=== PATIENT | female | born 1940 | race Caucasian/White ===

== ENCOUNTER → 2016-08-11 | Outpatient (CLI) | payer OTHER ==
--- NOTE | 2016-08-11 08:59 | US ---
Bilateral Duplex/Doppler Carotid Sonography Clinical Indications: 76-year-old female with known CAD and hyperlipidemia; evaluate for arterial occ lusive disease. Technique: The cervical portions of the carotid and vertebral arteries were imaged and interrogated b y color and pulsed Doppler. Spectral analysis was performed. Findings: Right Carotid: The common carotid artery, bifurcation, and origins of the internal and external carot id arteries are well imaged. Mild plaque formation is seen at the level of the carotid bifurcation. Peak ICA systolic velocity; 62 cm/sec. The internal to common carotid artery ratio is calculated at 1.0. Peak ICA diastolic velocity; 11 cm/sec. There is no evidence of flow-limiting stenosis. Left Carotid: The common carotid artery, bifurcation, and origins of the internal and external carot id arteries are well imaged. Mild-moderate plaque formation is seen at the level of the carotid bifurcation. Peak ICA systolic velocity; 71 cm/sec. The internal to common carotid artery ratio is calculated at 1.1. Peak ICA diastolic velocity; 16 cm/sec. There is no evidence of flow-limiting stenosis. Vertebral Arteries: Antegrade flow is shown by pulsed Duplex/Doppler of each vertebral artery. Impression: Plaque formation is seen involving the carotid bifurcations bilaterally with no evidence of flow-limiting carotid stenosis. Measurement of carotid stenosis is based on velocity parameters that correlate the residual internal carotid diameter with [place] Symptomatic Carotid Endarterectomy Trial (NASCET) based stenosis levels.
== END ==
LOC: FIMAGING 07:24
PROVIDERS: ATTEND Internal Medicine Interventional Cardiology
DX: I70.8 Atherosclerosis of other arteries (principal); I25.10 Atherosclerotic heart disease of native coronary artery without angina pectoris; E78.5 Hyperlipidemia, unspecified; E11.9 Type 2 diabetes mellitus without complications

== ENCOUNTER → 2016-08-24 | Outpatient (CLI) | payer OTHER | LOC: SBRMNEURO 20:00 | PROVIDERS: ATTEND Psychiatry & Neurology Sleep Medicine | DX: G47.33 Obstructive sleep apnea (adult) (pediatric) (principal) ==

== ENCOUNTER 2016-09-12 12:00 | Observation (INO) | payer OTHER ==
[2016-09-12] MEDS ORDERED: FAMOTIDINE 20 MG TAB PO ONE (12:06)
[2016-09-12] MEDS ORDERED: ceFAZolin 2 GM/DEXTROSE 100 ML IV ONE (12:06)
[2016-09-12] MEDS ORDERED: NS 1,000 ML IV ONE (12:06)
[2016-09-12] MEDS ORDERED: diphenhydrAMINE 25 MG CAP PO ONE (12:06)
[2016-09-12] MEDS ORDERED: DIAZEPAM 5 MG TAB PO ONE (12:06)
[2016-09-12] MEDS ORDERED: ASPIRIN EC 325 MG TAB PO ONE (12:06)
[2016-09-12] MEDS ORDERED: BACITRACIN IRRIGATION/NS 50,000 UNITS/1,000 ML BTL IRR ONE (12:06)
[2016-09-12] MEDS ORDERED: ceFAZolin 2 GM in D5W 100 ML IV ONE (12:30)
[2016-09-12 12:46] LABS: % IMMATURE GRANULYOCYTES 0.3 % (0.0-1.1); ABSOLUTE IMMATURE GRANULOCYTES 0.02 10^3/uL (0.00-0.10); ADD DIFF? NO; ADD MORPH? NO; ADD SCAN? NO; ATYPICAL LYMPHOCYTE FLAG 0 (0-99); FRAGMENT RBC FLAG 20 (0-99); HEMATOCRIT 37.3 % (38.0-47.0); HEMOGLOBIN 11.8 g/dL (12.6-16.3); LEFT SHIFT FLG 0 (0-99); LIPEMIA HEMOLYSIS FLAG 80 (0-99); MEAN CELL HEMOGLOBIN 26.8 pg (27.9-34.1); MEAN CELL HEMOGLOBIN CONCENTR. 31.6 g/dL (32.4-36.7); MEAN CELL VOLUME 84.6 fL (81.5-99.8); MEAN PLATELET VOLUME 10.6 fL (8.7-11.7); PLATELET CLUMPS FLAG 0 (0-99); PLATELET COUNT 240 10^3/uL (150-400); RED BLOOD CELL COUNT 4.41 10^6/uL (4.18-5.33); RED CELL DISTRIBUTION WIDTH 16.8 % (11.5-15.2)
--- NOTE | 2016-09-12 12:52 | CPEKG ---
Heart Rate: 60 RR Interval: 1000 P-R Interval: 180 QRSD Interval: 144 QT Interval: 452 QTC Interval: 452 P [place]: 60 QRS [place]: -50 T Wave [place]: -16 EKG Severity - ABNORMAL ECG - EKG Impression: SINUS RHYTHM EKG Impression: RBBB AND LAFB EKG Impression: PROBABLE LEFT VENTRICULAR HYPERTROPHY Electronically Signed By: Reilly Mascorro 14-Sep-2016 08:41:11
[2016-09-12 12:59] LABS: INR 1.35 (0.83-1.16); PROTIME(PATIENT) 16.7 SEC (12.0-15.0)
[2016-09-12] MEDS ORDERED: LIDOCAINE 1% 30 ML SDV ONE ×3 (12:59→15:10)
[2016-09-12] MEDS ORDERED: VERAPAMIL 5 MG/2 ML VIAL ONE (13:00)
[2016-09-12] MEDS ORDERED: HEPARIN 10,000 UNIT/10 ML MDV ONE (13:00)
[2016-09-12] MEDS ORDERED: IOPAMIDOL (ISOVUE-370) 150 ML BTL IV ONE (13:00)
[2016-09-12] MEDS ORDERED: fentaNYL 100 MCG/2 ML INJ ONE ×2 (13:00→14:56)
[2016-09-12] MEDS ORDERED: MIDAZOLAM 2 MG/2 ML VIAL ONE ×2 (13:00→14:56)
[2016-09-12] MEDS ORDERED: LIDO/EPI 1% **for epidural** 30 ML SDV ONE (13:20)
[2016-09-12] MEDS ORDERED: BUPIVACAINE 0.5% 30 ML SDV ONE (13:20)
[2016-09-12] MEDS ORDERED: IOPAMIDOL (ISOVUE-300) 100 ML BTL IV ONE (14:26)
--- NOTE | 2016-09-12 14:40 | SUROPNOTE ---
[facility] Operative Report - Surgery Date of Procedure: 09/12/16 Indication: This patient is a 76 year old woman, with a history of atrial fibrillation anticoagulated on Coumadin, type II DM, hyperlipidemia, hypertension, CVA in 2013, CAD s/p DC 11/2014 (no PCI), and vascular dementia, presenting with [id number] dyspnea on exertion and fatigue. [place] cardiovascular class III anginal equivalent. Nuclear stress test was performed and myocardial perfusion imaging demonstrated a small, mild intensity reversible defect involving the mid and basal inferior wall consistent with ischemia. Treadmill stress test with CAEP protocol was also performed, demonstrating that a maximum heart rate of 94 bpm was achieved, which represents 65% of the predicted max HR. Decision was made to perform left heart catheterization to rule out ischemia on the basis of class III anginal equivalent and intermediate risk non-invasive testing. If left heart catheterization does not demonstrate critical lesion, then will proceed with pacemaker placement for sick sinus syndrome and chronotropic incompetence, and right heart catheterization for class III dyspnea. Procedures performed: 1. Left heart catheterization with left ventricular and selective coronary angiography. Description of procedure: Description, risks, benefits and alternatives were discussed in detail. Informed consent was obtained. The patient was brought to the catheterization laboratory where a timeout was performed. In order to minimize anticoagulant usage, in the setting of possible pacemaker placement, the decision was made to use femoral access. The right groin was sterilely prepped and draped. 2% lidocaine utilized for local anesthetic. A 4-Rwandan hemostatic sheath placed right femoral artery utilizing modified Seldinger technique. Diagnostic coronary angiography performed with 6-Rwandan, Ki left-4 and Ki right- 4 catheter. All catheters were passed over a 0.035 guidewire. Pigtail catheter was then utilized for left heart catheterization and left ventricular angiography. Arterial sheath was removed under manual hold. Findings: 1. Hemodynamics: Aortic pressure 109/79, mean of 123, left ventricular pressure 184/12/29 end-diastolic. There was no significant pull back gradient across the aortic valve. 2. Left ventricle: The left ventricle appears mildly dilated. Left ventricle is normal shape. Segmental wall motion is normal with an ejection fraction of 50 %. There are no filling defects or significant mitral regurgitation. The aortic root and ascending aorta appears normal, there is no dissection or aneurysm formation. 3. Coronary angiography: Left main: The left main is a long large bifurcating vessel with mild calcified irregularities. 4. Left anterior descending: This is a moderately large vessel continuing around the apex. There are three small diagonal branches. There is moderate proximal and mid LAD calcification with eccentric 60% calcified mid LAD disease and a long area of mid LAD 70-80% disease. 5. Circumflex: The circumflex is nondominant with a large multibranching obtuse marginal and two small posterolaterals. The proximal circumflex has an eccentric 50% stenosis. The first obtuse marginal contains diffuse 60% or slightly greater proximal disease, otherwise there are mild luminal irregularities. 6. Right coronary: Large dominant vessel. Moderately large PDA, moderately large posterolateral. The right coronary contains calcified 50% disease, proximal eccentric 50% disease, and mid eccentric 60% disease; otherwise diffuse luminal irregularities. Overall Impression: 1. Moderate three vessel coronary artery disease, with the most severe being 70- 80% mid LAD disease (which does not correlate with nuclear stress testing reversible defect). 2. Mild dilation of the left ventricle with mildly reduced left ventricular systolic function, ejection fraction of 50%. 3. Chronotropic incompetence and sick sinus syndrome Plan: 1. Proceed with permanent pacemaker placement and right heart catheterization through the pacer pocket 2. Aggressive risk modification and high dose statin therapy. 3. Depending on clinical recovery, would consider bringing the patient back for multivessel FFR and directed intervention. Portions of this report were documented by a medical receptionist. I have reviewed this report and agree with the documentation. Report scribed for Dr. Aiden Malik. Report scribed by Cassy Alvarenga.
--- NOTE | 2016-09-12 14:49 | SUROPNOTE ---
[facility] Operative Report - Surgery Date of Procedure: 09/12/16 Indication: This patient is a 76 year old woman, with a history of atrial fibrillation anticoagulated on Coumadin, type II DM, hyperlipidemia, hypertension, CVA in 2013, CAD s/p [place] 11/2014 (no PCI), and vascular dementia, presenting with [id number] dyspnea on exertion and fatigue. Treadmill stress test with CAEP protocol was also performed, demonstrating that a maximum heart rate of 94 bpm was achieved, which represents 65% of the predicted max HR. Plan for permanent pacemaker placement in the setting of sick sinus syndrome and chronotropic incompetence, and right heart catheterization for class III dyspnea. Procedure Performed: 1. Placement of a dual chamber permanent pacemaker 2. Right heart catheterization Description of procedure: Risks, benefits, and alternatives were discussed in detail. Informed consent was obtained. We discussed various options for devices. Patient was brought to the catheterization laboratory, where a time out was performed. Left subclavian venography was performed via left arm IV, showing anatomically normal and widely patent left subclavian vein. Left anterior chest was sterilely prepped and draped. Patient received Ancef 2g intravenously. 2% lidocaine and 0.5% Marcaine were utilized for local anesthetic. A skin incision was made with a # 10 blade and carried down to pectoralis fascia using Bovie, and bleeders were cauterized. Site for the pocket was anesthetized with lidocaine with epinephrine. The pocket was created by blunt dissection and packed with single Ray-Bharat antibiotic-soaked gauze. The patient was placed in Trendelenburg position. Then, under fluoroscopic guidance, the subclavian vein was punctured with an 18-gauge thin wall needle (with quite difficulty establishing access due to vessel tortuosity and body habitus) and cannulated with 0.035 J-tip guidewire. A 7-Saudi Arabian peel-away introducing sheath was placed through which a 7- [place] PWP catheter was utilized for right heart catheterization. PWP catheter was removed and a second 0.035 J-tip guidewire was placed through the sheath. Sheath was removed and flushed, placed back over the original guidewire, establishing dual guidewire access. Then, through the sheath, a single coil active fixation right ventricular pacing lead was placed. This was positioned in the right ventricular apex and secured in place with the active fixation helix. There was adequate pacing and sensing, and the lead was sutured in place with a suture sleeve and two separate 0 Ethibond sutures. Then, over the second guidewire, a 6-S[place] peel-away introducing sheath was placed through which the active fixation right atrial lead was passed. Using a J curved stylette, this was placed in the area of the right atrial appendage and secured in place with the active fixation helix. There was adequate pacing and sensing, and the lead was suture in place with a suture sleeve and two separate 0 Ethibond sutures. Ray-Bharat gauze was moved from the pocket. The pocket was copiously irrigated with antibiotic solution and coated with D-Stat liquid hemostat. Any sites of oozing were cauterized. Pacemaker generator was brought to the field, leads were connected to proper head ports, and all set screws were tightened. Generator was placed in the pocket with the leads posterior, and secured in place with a single 0 Ethibond suture. The pocket was then closed with interrupted layers of 2-0 and 3-0 Vicryl suture and running 4-0 subcuticular Stratafix suture. Benzoin, Steri-Strips, and Opsite were placed. Hardware Implanted: Pacemaker is a Biotronik Eluna 8 DR-T ProMRI, model 417701, serial [id number]. Right ventricular lead is a Biotronik Solia S 53, model 342793, serial [id number] , threshold 0.60V @ 0.40ms, R wave sensing 5.50mV, impedance 741 Ohms. Right atrial lead is a Biotronik Solia S 45, model 083079, serial [id number], threshold 1.00V @ 1.00ms, P wave sensing 1.80mV, impedance 390 Ohms. Findings: 1. Hemodynamics: Right atrial pressure mean of 21. Right ventricular pressure 47/7/16 end-diastolic. Pulmonary artery pressure 47/16, mean of 29. Pulmonary capillary wedge pressure mean of 26 with V wave of 35. 2. Saturations: Superior vena cava 62.8%, main pulmonary artery 59.0%, Ao 94% . Assumed Hannah cardiac output 5.2L/min with a cardiac index of 2.4 L/min/m2. Impression: 1. Successful placement of dual chamber permanent pacemaker 2. Elevated filling pressures 3. Moderate pulmonary hypertension Plan: 1. Diuretic medical therapy Portions of this report were documented by a medical affairs manager. I have reviewed this report and agree with the documentation. Report scribed for Dr. Aiden Malik. Report scribed by Cassy Alvarenga.
[2016-09-12 14:50] LABS: ANION GAP 12 mEq/L (8-16); CALCIUM 10.4 mg/dL (8.5-10.4); CARBON DIOXIDE 20 mEq/l (22-31); CHLORIDE 109 mEq/L (97-110); CHOLESTEROL 133 mg/dL (140-220); CREATININE 0.9 mg/dL (0.6-1.0); GLOMERULAR FILTRATION RATE > 60; GLUCOSE 142 mg/dL (70-100); HIGH DENSITY LIPOPROTEIN 35 mg/dL (40-85); LDL/HDL RATIO 1.91 RATIO (1.00-3.22); LOW DENSITY LIPOPROTEIN 67 mg/dL (80-100); MAGNESIUM 1.3 mg/dL (1.6-2.3); NON-HIGH DENSITY LIPOPROTEIN 98 mg/dL (90-129); POTASSIUM 3.8 mEq/L (3.5-5.2); SODIUM 141 mEq/L (134-144); TRIGLYCERIDE 156 mg/dL (35-135); VERY LOW DENSITY LIPOPROTEINS 31 mg/dL (8-25)
[2016-09-12] MEDS ORDERED: ONDANSETRON 4 MG/2 ML VIAL IVP PRN (15:46)
[2016-09-12] MEDS ORDERED: OXYCODONE/APAP 5/325 TAB PO PRN (15:46)
[2016-09-12] MEDS ORDERED: ATROPINE SULFATE 1 MG/10 ML SYR IVP PRN (15:46)
[2016-09-12] MEDS ORDERED: HYDROCODONE/APAP 5/325 TAB PO PRN (15:46)
--- NOTE | 2016-09-12 16:46 | CPEKG ---
Heart Rate: 87 RR Interval: 690 P-R Interval: 156 QRSD Interval: 174 QT Interval: 456 QTC Interval: 549 P [place]: 0 QRS [place]: -72 T Wave [place]: 109 EKG Severity - ABNORMAL ECG - EKG Impression: VENTRICULAR-PACED RHYTHM Electronically Signed By: Reilly Mascorro 14-Sep-2016 08:41:17
[2016-09-12] MEDS ORDERED: MAGNESIUM SULF 2 GM/WATER 50 ML IV ONE (18:00)
[2016-09-12] MEDS ORDERED: MEMANTINE HCL PO SCH (21:00)
[2016-09-12] MEDS: amLODIPine BESYLATE 5 MG TAB PO SCH (21:09)
[2016-09-13 05:26] LABS: % IMMATURE GRANULYOCYTES 0.3 % (0.0-1.1); ABSOLUTE IMMATURE GRANULOCYTES 0.02 10^3/uL (0.00-0.10); ADD DIFF? NO; ADD MORPH? NO; ADD SCAN? NO; ATYPICAL LYMPHOCYTE FLAG 0 (0-99); FRAGMENT RBC FLAG 0 (0-99); HEMATOCRIT 32.3 % (38.0-47.0); HEMOGLOBIN 9.9 g/dL (12.6-16.3); LEFT SHIFT FLG 0 (0-99); LIPEMIA HEMOLYSIS FLAG 80 (0-99); MEAN CELL HEMOGLOBIN 26.5 pg (27.9-34.1); MEAN CELL HEMOGLOBIN CONCENTR. 30.7 g/dL (32.4-36.7); MEAN CELL VOLUME 86.6 fL (81.5-99.8); MEAN PLATELET VOLUME 10.9 fL (8.7-11.7); PLATELET CLUMPS FLAG 0 (0-99); PLATELET COUNT 218 10^3/uL (150-400); RED BLOOD CELL COUNT 3.73 10^6/uL (4.18-5.33); RED CELL DISTRIBUTION WIDTH 16.9 % (11.5-15.2)
[2016-09-13 05:54] LABS: ANION GAP 9 mEq/L (8-16); CALCIUM 9.5 mg/dL (8.5-10.4); CARBON DIOXIDE 23 mEq/l (22-31); CHLORIDE 109 mEq/L (97-110); CREATININE 0.9 mg/dL (0.6-1.0); GLOMERULAR FILTRATION RATE > 60; GLUCOSE 127 mg/dL (70-100); POTASSIUM 4.1 mEq/L (3.5-5.2); SODIUM 141 mEq/L (134-144)
[2016-09-13] MEDS ORDERED: LEVOTHYROXINE 75 MCG TAB PO SCH (06:00)
[2016-09-13 07:51] VITALS: BP 125/57; PULSE 74; RESP 17; TEMP 97.8; O2SAT 97
[2016-09-13] MEDS: amLODIPine BESYLATE 5 MG TAB PO SCH (08:42)
--- NOTE | 2016-09-13 08:48 | SOAPPROG ---
SOAP Progress Note Assessment/Plan: Assessment: [place] [place] 1. Status post dual chamber pacemaker implantation. 2. Status post C showing diffuse moderate-severe CAD with borderline LAD lesion. No PCI performed. 3. Dilated cardiomyopathy / mild systolic CHF w/ LVEF 50%, elevated filling pressures. 4. History of PAF, high CHADS-VASc, anticoagulated w/ coumadin. 5. T2DM treated w/ oral medications. 6. HTN, controlled. 7. Hyperlipidemia. 8. RBBB/LAFB. 9. History of CVA in 2013. 10. Hypothyroidism. 11. BOAZ treated w/ CPAP. Plan: 1. Standard post-pacemaker precautions. 2. Diuretic therapy. 3. Post-cath precautions. 4. Resume warfarin. Continue all other home medications. 5. Discharge to home today. 09/13/16 08:40 09/13/16 09:12 Objective: Vital Signs Temp Pulse Resp BP Pulse Ox 36.6 C 74 17 125/57 H 97 09/13/16 07:50 09/13/16 07:50 09/13/16 07:50 09/13/16 07:50 09/13/16 07:50 Laboratory Results 09/13/16 04:30 09/13/16 04:30 09/12/16 09/13/16 09/14/16 05:59 05:59 05:59 Intake Total 440 Balance 440 PT 16.7 SEC (12.0-15.0) H 09/12/16 12:40 INR 1.35 (0.83-1.16) H 09/12/16 12:40
--- NOTE | 2016-09-13 08:54 | CPEKG ---
Heart Rate: 67 RR Interval: 896 P-R Interval: 156 QRSD Interval: 146 QT Interval: 452 QTC Interval: 478 P [place]: 62 QRS [place]: -53 T Wave [place]: -12 EKG Severity - ABNORMAL ECG - EKG Impression: SINUS RHYTHM EKG Impression: RBBB AND LAFB EKG Impression: PROBABLE LEFT VENTRICULAR HYPERTROPHY EKG Impression: SINUS RHYTHM HAS REPLACED VENTRICULAR PACED RHYTHM ON PRIOR ECG Electronically Signed By: Reilly Mascorro 14-Sep-2016 08:51:21
[2016-09-13] MEDS ORDERED: FUROSEMIDE 20 MG TAB PO SCH (09:00)
[2016-09-13] MEDS ORDERED: METOPROLOL SUCCINATE XR 50 MG TAB PO SCH (09:00)
[2016-09-13] MEDS ORDERED: GLIMEPIRIDE 1 MG TAB PO SCH (09:00)
[2016-09-13] MEDS ORDERED: LOSARTAN POTASSIUM 50 MG TAB PO SCH (09:00)
[2016-09-13] MEDS ORDERED: ATORVASTATIN CALCIUM 40 MG TAB PO SCH (09:00)
[2016-09-13] MEDS ORDERED: CITALOPRAM 20 MG TAB PO SCH (09:00)
[2016-09-13] MEDS ORDERED: MEMANTINE HCL 5 MG TAB PO SCH (09:00)
== END 2016-09-13 12:38 | disposition home or self-care (01) ==
LOC: FCATH 12:00 → F2W 15:46
PROVIDERS: ADMIT Internal Medicine Interventional Cardiology; ATTEND Internal Medicine Interventional Cardiology
DX: I49.5 Sick sinus syndrome (principal); I25.10 Atherosclerotic heart disease of native coronary artery without angina pectoris; I42.0 Dilated cardiomyopathy; I48.0 Paroxysmal atrial fibrillation; E11.9 Type 2 diabetes mellitus without complications; I10 Essential (primary) hypertension; E78.5 Hyperlipidemia, unspecified; I45.10 Unspecified right bundle-branch block; I44.4 Left anterior fascicular block; E03.9 Hypothyroidism, unspecified; G47.33 Obstructive sleep apnea (adult) (pediatric); Z86.73 Personal history of transient ischemic attack (TIA), and cerebral infarction without residual deficits; Z95.0 Presence of cardiac pacemaker
CPT/HCPCS: 33208; 71010; 71020; 93005; 93460; A4649; C1785; C1898; J0690; J1644; J2250; J3010; Q9967

== ENCOUNTER 2016-09-16 08:56 | Inpatient (IN) | payer OTHER ==
[2016-09-16] MEDS ORDERED: NS 500 ML IV ONE (09:00)
--- NOTE | 2016-09-16 09:08 | CPEKG ---
Heart Rate: 121 RR Interval: 496 QRSD Interval: 144 QT Interval: 388 QTC Interval: 551 QRS [place]: -58 T Wave [place]: 12 EKG Severity - ABNORMAL ECG - EKG Impression: AFIB/FLUT AND V-PACED COMPLEXES EKG Impression: RBBB AND LAFB EKG Impression: PROBABLE LEFT VENTRICULAR HYPERTROPHY Electronically Signed By: Suleman Goss 16-Sep-2016 11:13:51
[2016-09-16] MEDS ORDERED: MAGNESIUM SULF 2 GM/WATER 50 ML IV ONE ×3 (09:12→12:51)
--- NOTE | 2016-09-16 09:20 | EDPHY ---
H & P Time Seen by Provider: 09/16/16 08:59 HPI/ROS: HPI Lightheaded, near fainting. 68-year-old female by ambulance from home. This patient had a pacemaker placed by Dr. Malik of the Cardiology Service on September 13. She has a history of atrial fibrillation. She is on Coumadin currently. She reports that she has had several episodes of lightheadedness when standing. She reports that she was in her kitchen this morning. She was making coffee when she had sudden onset lightheadedness. She was able to slowly lower herself to the ground but was not able to get up off the floor. She reports that she slid down while holding onto the sink. She denies hitting her head. She did not twist her neck. EMS was called. They noted atrial fibrillation with a rapid ventricular response on the rhythm strip. The patient denies chest pain or shortness of breath. She had some right shoulder pain initially reported to EMS this was from laying on her right shoulder. Once I got her up this pain resolved and she denies any musculoskeletal pain at this time. ROS: Constitutional: No fever, no chills. As above. Eyes: No discharge. No changes in vision. ENT: No sore throat. No nasal congestion or rhinorrhea. Respiratory: No cough. No shortness of breath. Cardiac: No chest pain, no palpitations. Gastrointestinal: No abdominal pain, no vomiting, no diarrhea. Genitourinary: No hematuria. No dysuria or increased frequency with urination. Musculoskeletal: No back pain. No neck pain. No myalgias or arthralgias. As above. Skin: No rashes. Neurological: No headache. No focal weakness or altered sensation. Past medical history: Diabetes, heart disease, thyroid disease, depression, anxiety, stroke, arthritis, dementia, peripheral vascular disease, thyroidectomy , partial mastectomy. Primary care is through [facility]. Her wildlife removal specialist is Dr. Aiden Malik. Her blood pressure medications include Lasix, losartan, metoprolol and recently added amlodipine. Social history: Here by herself currently. Nonsmoker. No alcohol. She lives with her daughter who is on her way to the hospital currently. Physical Exam: General Appearance: Alert, no distress. This patient is responding to questions appropriately and in full sentences. This patient appears well- hydrated and well-nourished. Head: Normocephalic atraumatic. There is no evidence of traumatic injury. Eyes: Pupils equal and round no pallor or injection. No lid edema, erythema or injection. ENT, Mouth: Mucous membranes are moist. The pharyngeal tissues are unremarkable. No edema or swelling. No asymmetry suggestive of abscess. No erythema or exudates. Dentition intact. No tongue lacerations. Respiratory: There are no retractions, lungs are clear to auscultation with good air movement bilaterally. Cardiovascular: Irregular rhythm. Mild tachycardia. No murmur. Inspection of the left upper chest wall pacemaker insertion site, clean, dry and intact. No evidence of infection. The chest wall is stable to AP and lateral compression. Gastrointestinal: Abdomen is soft and nontender, no masses, bowel sounds normal. No focal tenderness at McBurney's point. No Gilbert sign. Neurological: Motor sensory function is grossly intact. Cranial nerves are normal. Skin: Warm and dry, no rashes. Musculoskeletal: Neck is supple with vague paraspinal tenderness from C5 through C7. She states that this is the same pain she has had for an extended period of time. There is no bony step-off or deformity noted on palpation of her cervical spine. No midline thoracic, lumbar tenderness on palpation. No CVA tenderness bilaterally. Extremities are symmetrical. All joints range without pain or impingement. Psychiatric: No agitation. No depression. Database: EKG: EKG time is 9:04 a.m.; EKG shows atrial fibrillation versus flutter with ventricular paced complexes. Right bundle branch block and left anterior fascicular block underline. Probable left ventricular hypertrophy. Rate average is 121. Interpreted by me. Imaging: Chest x-ray AP; the cardiac mediastinal silhouette is unremarkable. The pacemaker in pacemaker leads appear intact. No evidence of infiltrate or pneumothorax. No acute cardiopulmonary disease process noted. Interpreted by me. Procedures: Emergency department course: IV placed x2. Patient placed on a awake overnight monitor. She will be given 500 cc of IV normal saline. Blood pressure currently 96/72. Heart rate 107 on the monitor. Plan will be to give her 2 g of IV magnesium and IV saline as noted. Pacemaker to be interrogated. Patient to be admitted pending workup. 9:40 a.m., patient re-evaluated. She is resting comfortably at this time. Her heart rate has been running between 100 and 120. Blood pressure currently is 100 /82. Plan is to continue to hydrate, 2 g of IV magnesium to be given. 9:50 a.m., patient reports some nausea. She was given 4 mg of IV Zofran. 10:00 a.m., spoke to the physician periodicals library assistant for Lul Mcallister, case discussed in detail with him. Emergency department management discussed. He will see this patient in the emergency department or immediately on admission to the floor. Pacemaker interrogation pending. 10:05 a.m., discussed case with hospitalist. Dr. Deal accepts the patient for admission to the PCU. The patient's remaining emergency department course under my care has been uneventful. Vital signs currently blood pressure 103 over 83 and heart rate of 103. Plan will be to continue to gently hydrate. Will hold rate control medication at this time secondary to labile blood pressures. 10:07 a.m., nurse reports to me that the patient seems anxious. She is complaining of some numbness in her right 3rd 4th and 5th digit. I reassessed her. Her repeat neurologic exam is nonfocal. I feel CVA and acute radiculopathy is unlikely. She does not have any new neck pain. She states she feels anxious. I discussed with her and her daughter that we will consider imaging after her blood pressures and heart rates have been stabilized more. She will be given 0.25 mg of IV Ativan. 10:25 a.m., Dr. Deal and back the bedside. Patient admitted to telemetry in stable and improved condition. Differential Diagnosis: The differential diagnosis on this patient includes but is not limited to atrial fibrillation with rapid ventricular response, ventricular tachycardia, acute coronary syndrome, pacemaker malfunction. This represents a partial list of diagnoses considered. These considerations are based on history, physical exam, past history, reassessment and diagnostic testing. Smoking Status: Never smoked Constitutional: Initial Vital Signs Temperature (C) 36.6 C 09/16/16 08:56 Heart Rate 113 H 09/16/16 08:56 Respiratory Rate 16 09/16/16 08:56 Blood Pressure 107/87 H 09/16/16 08:56 O2 Sat (%) 93 09/16/16 08:56 O2 Delivery Mode Nasal Cannula O2 (L/minute) 2 Allergies/Adverse Reactions: No Known Allergies Allergy (Unverified 05/23/16 19:20) Home Medications: Medication Instructions Recorded Atorvastatin Calcium [Lipitor 40 40 mg PO DAILY 05/23/16 mg (*)] Citalopram [CeleXA 20 MG] 20 mg PO DAILY 05/23/16 Glimepiride [Amaryl 1 MG (*)] 1 mg PO DAILY 05/23/16 Losartan Potassium [Cozaar 50 mg 100 mg PO DAILY 05/23/16 (*)] Metoprolol Succinate Xr [Toprol Xl 50 mg PO DAILY18 05/23/16 50 mg (*)] Warfarin Sodium [Coumadin 2.5MG 2.5 mg PO MOTUTHFRSA 05/23/16 (*)] Levothyroxine [Synthroid 75 mcg 75 mcg PO DAILY06 09/12/16 (*)] Memantine HCl [Namenda 10 mg] 10 mg PO BID 09/12/16 Warfarin Sodium [Coumadin 5MG (*)] 5 mg PO SUWE 09/12/16 Furosemide [Lasix 20 MG (*)] 20 mg PO DAILY #30 tab 09/13/16 amLODIPine BESYLATE [Norvasc 5 mg 5 mg PO DAILY #0 tab 09/13/16 (*)] Gabapentin 100 mg PO HS 09/16/16 Metformin HCl [Metformin HCl ER] 500 mg PO 0900,1400 09/16/16 Medical Decision Making - Data Points Laboratory Results: Laboratory Results 09/16/16 08:56 09/16/16 08:56 09/16/16 09/16/16 09/16/16 08:56 08:56 08:56 WBC 7.67 10^3/uL 10^3/uL (3.80-9.50) RBC 4.58 10^6/uL 10^6/uL (4.18-5.33) Hgb 11.9 g/dL L g/dL (12.6-16.3) Hct 38.2 % % (38.0-47.0) MCV 83.4 fL fL (81.5-99.8) MCH 26.0 pg L pg (27.9-34.1) MCHC 31.2 g/dL L g/dL (32.4-36.7) RDW 17.0 % H % (11.5-15.2) Plt Count 295 10^3/uL 10^3/uL (150-400) MPV 11.3 fL fL (8.7-11.7) Neut % (Auto) 62.9 % % (39.3-74.2) Lymph % (Auto) 24.8 % % (15.0-45.0) [place] % (Auto) 9.0 % % (4.5-13.0) Eos % (Auto) 2.6 % % (0.6-7.6) Baso % (Auto) 0.4 % % (0.3-1.7) Nucleat RBC Rel Count 0.0 % % (0.0-0.2) Absolute Neuts (auto) 4.83 10^3/uL 10^3/uL (1.70-6.50) Absolute Lymphs (auto) 1.90 10^3/uL 10^3/uL (1.00-3.00) Absolute Monos (auto) 0.69 10^3/uL 10^3/uL (0.30-0.80) Absolute Eos (auto) 0.20 10^3/uL 10^3/uL (0.03-0.40) Absolute Basos (auto) 0.03 10^3/uL 10^3/uL (0.02-0.10) Absolute Nucleated RBC 0.00 10^3/uL 10^3/uL (0-0.01) Immature Gran % 0.3 % % (0.0-1.1) Immature Gran # 0.02 10^3/uL 10^3/uL (0.00-0.10) PT 15.0 SEC SEC (12.0-15.0) INR 1.18 H (0.83-1.16) APTT 31.7 SEC SEC (23.0-38.0) Sodium 142 mEq/L mEq/L (134-144) Potassium 4.0 mEq/L mEq/L (3.5-5.2) Chloride 105 mEq/L mEq/L (97-110) Carbon Dioxide 21 mEq/l L mEq/l (22-31) Anion Gap 16 mEq/L mEq/L (8-16) BUN 20 mg/dL mg/dL (7-23) Creatinine 1.0 mg/dL mg/dL (0.6-1.0) Estimated GFR 54 Glucose 176 mg/dL H mg/dL (70-100) Calcium 9.6 mg/dL mg/dL (8.5-10.4) Magnesium 1.3 mg/dL L mg/dL (1.6-2.3) Creatine Kinase 93 IU/L IU/L (0-156) CK-MB (CK-2) Fraction 1.73 ng/mL ng/mL (0-3.19) Troponin I < 0.012 ng/mL ng/mL (0-0.034) TSH 3.420 uIU/mL uIU/mL (0.465-4.680) Medications Given: Discontinued Medications Sodium Chloride (Ns) 500 mls @ 0 mls/hr IV ONCE ONE PRN Reason: As Directed Stop: 09/16/16 09:01 Last Admin: 09/16/16 09:16 Dose: 500 mls Magnesium Sulfate (Magnesium Sulf 2 Gm (Premix)) 50 mls @ 50 mls/hr IV EDNOW ONE Stop: 09/16/16 10:11 Last Admin: 09/16/16 09:25 Dose: 50 mls Lorazepam (Ativan Injection) 0.25 mg IVP EDNOW ONE Stop: 09/16/16 10:12 Last Admin: 09/16/16 10:20 Dose: 0.25 mg Ondansetron HCl (Zofran) 4 mg IVP EDNOW ONE Stop: 09/16/16 09:54 Last Admin: 09/16/16 10:09 Dose: 4 mg Departure - Departure Disposition: [facility] Inpatient Acute Clinical Impression: Atrial fibrillation with RVR, Hypotension, Near syncope
[2016-09-16 09:22] LABS: % IMMATURE GRANULYOCYTES 0.3 % (0.0-1.1); ABSOLUTE IMMATURE GRANULOCYTES 0.02 10^3/uL (0.00-0.10); ADD DIFF? NO; ADD MORPH? NO; ADD SCAN? NO; ATYPICAL LYMPHOCYTE FLAG 0 (0-99); FRAGMENT RBC FLAG 20 (0-99); HEMATOCRIT 38.2 % (38.0-47.0); HEMOGLOBIN 11.9 g/dL (12.6-16.3); LEFT SHIFT FLG 0 (0-99); LIPEMIA HEMOLYSIS FLAG 80 (0-99); MEAN CELL HEMOGLOBIN CONCENTR. 31.2 g/dL (32.4-36.7); MEAN CELL VOLUME 83.4 fL (81.5-99.8); MEAN PLATELET VOLUME 11.3 fL (8.7-11.7); PLATELET CLUMPS FLAG 0 (0-99); PLATELET COUNT 295 10^3/uL (150-400); RED BLOOD CELL COUNT 4.58 10^6/uL (4.18-5.33)
[2016-09-16 09:35] LABS: ANION GAP 16 mEq/L (8-16); CALCIUM 9.6 mg/dL (8.5-10.4); CARBON DIOXIDE 21 mEq/l (22-31); CHLORIDE 105 mEq/L (97-110); GLOMERULAR FILTRATION RATE 54; GLUCOSE 176 mg/dL (70-100); MAGNESIUM 1.3 mg/dL (1.6-2.3); SODIUM 142 mEq/L (134-144)
[2016-09-16 09:46] LABS: CREATINE KINASE-MB FRACTION 1.73 ng/mL (0-3.19); TROPONIN I < 0.012 ng/mL (0-0.034)
[2016-09-16] MEDS ORDERED: ONDANSETRON 4 MG/2 ML VIAL IVP ONE (09:53)
[2016-09-16 10:03] LABS: INR 1.18 (0.83-1.16)
[2016-09-16 10:04] LABS: APTT 31.7 SEC (23.0-38.0)
[2016-09-16] MEDS ORDERED: LORazepam 2 MG/ML INJ IVP ONE (10:11)
[2016-09-16] MEDS ORDERED: ONDANSETRON DISINTEGRATING 4 MG TAB PO PRN (12:47)
[2016-09-16] MEDS ORDERED: ACETAMINOPHEN 325 MG TAB PO PRN (12:47)
[2016-09-16] MEDS ORDERED: ONDANSETRON 4 MG/2 ML VIAL IVP PRN (12:47)
--- NOTE | 2016-09-16 13:26 | SOAPPROG ---
SOAP Progress Note Assessment/Plan: Assessment: Cardiology (Malik/[facility]) 1. Admit with progressive lightheadedness and fall this am. Arrived via EMS. 2. Rapid atrial fibrillation starting last evening per device home monitoring. She resumed her coumadin 2 days ago. INR is 1.18 today. 3. Status post dual chamber pacemaker implantation on 09/14/16. 4. Status post C showing diffuse moderate-severe CAD with borderline LAD lesion. No PCI performed. 5. Dilated cardiomyopathy / mild systolic CHF w/ LVEF 50%, elevated filling pressures. 6. T2DM treated w/ oral medications. 7. Hypertensive during last admission. Amlodipine and furosemide were added which are now causing hypotension. 8 Hyperlipidemia. 9. RBBB/LAFB. 10. History of CVA in 2013. 11. Hypothyroidism. 12. BOAZ treated w/ CPAP. Plan: 1. Coumadin and lovenox bridge per hospitalist. 2. Discontinue amlodipine. 3. Hold furosemide however patient may benefit mcfp from continuing due to elevated filling pressures at cath. 4. Give metoprolol now. 5. Amiio iv gtt protocol and continue to monitor. Pending clinical course consider starting AAD therapy however patient has not generally been symptomatic with episodes of afib in the past. If still in afib and patient feels better with fluid and normotensive state then we could continue to monitor rhythm via device monitoring. 09/17/16 10:01 Objective: Vital Signs Temp Pulse Resp BP Pulse Ox 36.6 C 120 H 16 116/64 99 09/16/16 12:39 09/16/16 12:39 09/16/16 12:39 09/16/16 12:39 09/16/16 12:39 09/15/16 09/16/16 09/17/16 05:59 05:59 05:59 Intake Total 500 Balance 500 PT 15.0 SEC (12.0-15.0) 09/16/16 08:56 INR 1.18 (0.83-1.16) H 09/16/16 08:56 ICD10 Worksheet Patient Problems: Problems Problem Status Onset Atrial fibrillation with RVR Acute Hypotension Acute Near syncope Acute Coronary artery disease Acute Sick sinus syndrome Acute
[2016-09-16] MEDS ORDERED: NS 1,000 ML IV SCH (14:15)
[2016-09-16] MEDS ORDERED: WARFARIN SODIUM 2.5 MG TAB PO SCH (15:00)
[2016-09-16] MEDS ORDERED: AMIODARONE HCL 100 ML IV ONE (15:01)
[2016-09-16] MEDS ORDERED: AMIODARONE HCL 200 ML IV ONE (15:02)
[2016-09-16] MEDS: metFORMIN SR 500 MG TAB PO SCH (15:26)
[2016-09-16] MEDS: ENOXAPARIN 100 MG/ML SYR SC SCH ×2 (15:27→21:26)
--- NOTE | 2016-09-16 16:41 | GHP ---
DATE OF ADMISSION: 09/16/2016 CHIEF COMPLAINT: Atrial fibrillation, near syncope. PRIMARY SHEAR TENDER: Dr. Malik HISTORY OF PRESENT ILLNESS: a pleasant 76-year-old female with multiple comorbidities including permanent atrial fibrillation, diabetes, hypertension, right bundle branch block, and CVA, presenting after a fall. Was discharged 07/2016 after undergoing a pacemaker placement for [id number] on September 12. Since being at home, patient has been very fatigued, sleeping most of the day per her daughter, and also taking in minimal p.o. This morning , she was trying to pour a cup of coffee and then felt dizzy and fell backwards on her buttocks. She denied hitting her head. She denied chest pain, shortness of breath, and palpitations. In the emergency room, she noted numbness in the 1st fingers of her right hand, but denies overt weakness. She said it was difficult to get out words and felt a little confused. She denies fevers, chills, and sweats. No upper respiratory symptoms. Denies dysuria. ROS: I completed a 10-point review of symptoms, negative except as noted in HPI. PAST MEDICAL HISTORY: 1. Neuropathy. 2. CVA. 3. [place] in November 2014. 4. Peripheral artery disease. 5. Depression. 6. CAD. Cardiac catheterization demonstrated moderate three-vessel disease, most being 70% to 80% mid LAD. 7. Sick sinus syndrome. PAST SURGICAL HISTORY: 1. Stenting of bilateral lower extremities. 2. Fatty tumor removal, 2012. 3. Mastectomy. 4. Hysterectomy. 5. Partial thyroidectomy. 6. Pacemaker placement September 13, 2016. SOCIAL HISTORY: Lives in [place] with her daughter. No illicit's. Uses a cane or walker when outside her home. ALLERGIES: No known drug allergies. MEDICATIONS: Norvasc 5, Coumadin Sunday and Sunday and 2.5 mg every other day, Toprol 50 mg daily, metformin 500 mg b.i.d., Namenda 10 mg b.i.d., losartan 100 mg p.o. daily, levothyroxine 75 mcg daily, glimepiride 1 mg daily, gabapentin 100 mg q.h.s., Lasix 20 mg daily, Celexa 20 daily, atorvastatin 40 mg daily. FAMILY HISTORY: Father she does know about. Mother had a heart surgery. Son of an [place]. Daughter of an [place]. Thyroid cancer in the family. PHYSICAL EXAMINATION: VITAL SIGNS: Temperature 36.6, blood pressure 92/77, now 116/64, heart rate 84 to 120s, respirations 16, 99% on 2 L. GENERAL: Obese. No acute distress. HEENT: PERRLA. Oropharynx clear. CV: Irregularly irregular. Tachycardia. No murmurs, gallops, or rubs. Left upper chest with a pacemaker incision site dressed, clean, dry, and intact with no surrounding erythema. LUNGS: Clear to auscultation anteriorly. ABDOMEN: Obese soft, nontender, nondistended. Positive bowel sounds. : No Cohn. No suprapubic tenderness. MUSCULOSKELETAL: Moving all 4 extremities. 5/5 upper and lower extremity strength. NEURO: 2 through 12 intact. No focal deficits. Normal sensation to touch. PSYCH: Alert oriented x3. LABORATORY DATA: WBC 7.6, hemoglobin 11, hematocrit 38, platelets 295. INR is 1.1. PT is 15. Sodium 142, potassium 4, chloride 105, carbon dioxide 21, BUN 20, creatinine 1, glucose 176, magnesium 1.3, calcium 7.8. Troponin less than 0.012. TSH is 3.4. Chest x-ray is personally reviewed by me; no overt opacity or effusion. EKG personally reviewed by me; right bundle branch block, AFib, V-paced. CT head: Nothing acute. I identified no hemorrhage present. Stable right posterior parietal remote infarction. ASSESSMENT AND PLAN: 1. Atrial fibrillation: tachy to 120s here. Currently hemodynamically stable. Will resume her home beta adelaida. Cardiology has evaluated and will add amiodarone given borderline blood pressures to prevent hypotension. Patient 's [id number] score 8; thus will bridge with Lovenox with INR <2. 2. Hypotension: due to multiple anti-hypertensives. Recently started on Norvasc; will stop this annd last hospitalization. We will hold losartan today and reassess tomorrow. 3. Sick sinus syndrome: pacemaker placed 09/12/2016; appears to be healing well. 4. Hyperlipidemia: statin. 5. Controlled diabetes: metformin, SSI 6. History of cerebrovascular accident: statin and Coumadin. 7. Depression: Celexa. 8. Coronary artery disease: Multivessel disease demonstrated on recent catheterization. Continue beta adelaida and statin. 9. Hypothyroidism: levothyroxine. 10. Peripheral neuropathy: due to diabetes: Continue gabapentin. 11. Fall: multifactorial given hypotension, decreased PO intake and atrial fibrillation. CT head was negative. 12. Slurred speech: Patient reports some slurred speech today; neuro exam intact. CTH negative. May have been due to decreased cerebral perfusion with hypotension. She feels well now. 13. Diet: Cardiac/diabetic. 14. Deep vein thrombosis prophylaxis: On Coumadin and Lovenox. Patient warrants inpatient admission given acute atrial fibrillation and hypotension. Cont IV rate control and telemetry. Patient is new to care today; I reviewed prior DC summary, records and lab data. /[id number]/MODL MTDD
[2016-09-16] MEDS: METOPROLOL SUCCINATE XR 50 MG TAB PO SCH (18:16)
[2016-09-16] MEDS ORDERED: D50W 25 GM/50 ML SYR IVP PRN (20:50)
[2016-09-16] MEDS ORDERED: AMIODARONE HCL 540 MG in D5W 300 ML IV ONE (21:00)
[2016-09-16] MEDS: MEMANTINE HCL 5 MG TAB PO SCH (21:27)
[2016-09-16] MEDS: GABAPENTIN 100 MG CAP PO SCH (21:28)
[2016-09-17 05:35] LABS: INR 1.39 (0.83-1.16)
[2016-09-17 05:38] LABS: HEMATOCRIT 31.8 % (38.0-47.0); HEMOGLOBIN 9.9 g/dL (12.6-16.3); MEAN CELL HEMOGLOBIN 26.9 pg (27.9-34.1); MEAN CELL HEMOGLOBIN CONCENTR. 31.1 g/dL (32.4-36.7); MEAN CELL VOLUME 86.4 fL (81.5-99.8); RED BLOOD CELL COUNT 3.68 10^6/uL (4.18-5.33); RED CELL DISTRIBUTION WIDTH 16.7 % (11.5-15.2)
[2016-09-17 05:53] LABS: ANION GAP 8 mEq/L (8-16); CALCIUM 8.5 mg/dL (8.5-10.4); CARBON DIOXIDE 22 mEq/l (22-31); CHLORIDE 110 mEq/L (97-110); GLOMERULAR FILTRATION RATE 54; GLUCOSE 116 mg/dL (70-100); POTASSIUM 3.5 mEq/L (3.5-5.2); SODIUM 140 mEq/L (134-144)
[2016-09-17] MEDS: LEVOTHYROXINE 75 MCG TAB PO SCH (06:00)
[2016-09-17] MEDS: INSULIN LISPRO 100 UNIT/ML SC SCH ×3 (08:02→15:57)
[2016-09-17] MEDS: metFORMIN SR 500 MG TAB PO SCH ×2 (08:24→14:30)
[2016-09-17] MEDS: ENOXAPARIN 100 MG/ML SYR SC SCH ×2 (08:24→20:13)
[2016-09-17] MEDS: ATORVASTATIN CALCIUM 40 MG TAB PO SCH (08:25)
[2016-09-17] MEDS: MEMANTINE HCL 5 MG TAB PO SCH ×2 (08:25→20:13)
[2016-09-17] MEDS: CITALOPRAM 20 MG TAB PO SCH (08:25)
[2016-09-17] MEDS ORDERED: FUROSEMIDE 20 MG TAB PO SCH (09:00)
[2016-09-17 11:48] LABS: HEMATOCRIT 32.8 % (38.0-47.0)
[2016-09-17] MEDS ORDERED: WARFARIN SODIUM 5 MG TAB PO SCH (14:54)
--- NOTE | 2016-09-17 15:03 | SOAPPROG ---
ROSITA Progress Note Assessment/Plan: Assessment: Feeling better today but still weak. According to nursing staff and daughter patient not ready for discharge at today due to weakness and unsteady gait. Still in atrial fibrillation with ventricular pacing. 1. near syncope likely related to overmedication and atrial fibrillation with rapid ventricular response. 2. Sick sinus syndrome, paroxysmal atrial fibrillation, chronotropic incompetence status post recent placement of dual-chamber permanent pacemaker. 3. Atrial fibrillation with rapid ventricular response. Now improved but still in atrial fibrillation on amiodarone. 4. Moderate to severe coronary artery disease 5. Obstructive sleep apnea 6. Warfarin anticoagulation with a low INR status post pacemaker placement 7. Moderate pulmonary hypertension and increase in filling pressures at recent cardiac catheterization Plan: 1. Patient is not being discharged today and will stay on telemetry due to her arrhythmia. 2. Continue warfarin with Lovenox bridging 3. Recommend continue amiodarone. We may want to discharge patient tomorrow on oral amiodarone. 4. Pacemaker will be interrogated in the morning 5. Would only consider for further coronary evaluation with FFR etc for increasing symptoms. 09/17/16 15:00 09/17/16 15:04 09/17/16 15:06 Objective: Vital Signs Temp Pulse Resp BP Pulse Ox 98.0 F 89 20 111/63 91 L 09/17/16 12:00 09/17/16 12:00 09/17/16 12:00 09/17/16 12:00 09/17/16 12:00 Laboratory Results 09/17/16 11:26 09/17/16 04:32 09/16/16 09/17/16 09/18/16 05:59 05:59 05:59 Intake Total 2635 620 Output Total 550 Balance 2085 620 PT 17.0 SEC (12.0-15.0) H 09/17/16 04:32 INR 1.39 (0.83-1.16) H 09/17/16 04:32 ICD10 Worksheet Patient Problems: Problems Problem Status Onset Atrial fibrillation with RVR Acute Hypotension Acute Near syncope Acute Coronary artery disease Acute Sick sinus syndrome Acute
--- NOTE | 2016-09-17 15:06 | HOSPPROG ---
Hospitalist Progress Note Assessment/Plan: #Atrial fibrillation with RVR: now rate-controlled on IV Amio and home BB. CHADSvasc 8, thus coumadin, Lovenox bridge #Hypotension: now resolved. Held Losartan and Norvasc #Social issues: pt to be evicted. SW to help assist with Medicaid application.Will be difficult to afford Lovenox for bridging therapy, etc #Sick sinus syndrome: pacer placed 09/12, healing well. Interrogate pacer tomorrow #CAD: multivessel disease. Cont BB, statin #Controlled DM: cont metformin. SSI #CVA: statin, coumadin #Slurred speech: resolved. CTH with no new stroke #HLD: statin #Depression: Celexa #Diet: cardiac #DVT ppx: Lovenox, Coumadin #Disp: warrants inpt admission given IV amio, bridging anticoagulation therapies. SW assisting with insurance issues Subjective: feels much better today Objective: Vital Signs Temp Pulse Resp BP Pulse Ox 36.7 C 89 20 111/63 91 L 09/17/16 12:00 09/17/16 12:00 09/17/16 12:00 09/17/16 12:00 09/17/16 12:00 Laboratory Results 09/17/16 11:26 09/17/16 04:32 09/16/16 09/17/16 09/18/16 05:59 05:59 05:59 Intake Total 2635 620 Output Total 550 Balance 2085 620 PT 17.0 SEC (12.0-15.0) H 09/17/16 04:32 INR 1.39 (0.83-1.16) H 09/17/16 04:32 - Physical Exam Constitutional: no apparent distress, obese Eyes: PERRL Ears, Nose, Mouth, Throat: moist mucous membranes, hearing normal Cardiovascular: irregularly irregular Respiratory: no respiratory distress, no rales or rhonchi Gastrointestinal: normoactive bowel sounds, soft, non-tender abdomen Skin: warm Musculoskeletal: full muscle strength Neurologic: AAOx3, CN II-XII Intact Psychiatric: interacting appropriately ICD10 Worksheet Patient Problems: Problems Problem Status Onset Atrial fibrillation with RVR Acute Hypotension Acute Near syncope Acute Coronary artery disease Acute Sick sinus syndrome Acute
[2016-09-17] MEDS: METOPROLOL SUCCINATE XR 50 MG TAB PO SCH (17:42)
[2016-09-17] MEDS: GABAPENTIN 100 MG CAP PO SCH (20:12)
[2016-09-18 05:31] LABS: HEMATOCRIT 33.6 % (38.0-47.0); HEMOGLOBIN 10.2 g/dL (12.6-16.3); MEAN CELL HEMOGLOBIN 26.8 pg (27.9-34.1); MEAN CELL HEMOGLOBIN CONCENTR. 30.4 g/dL (32.4-36.7); MEAN CELL VOLUME 88.4 fL (81.5-99.8); RED BLOOD CELL COUNT 3.8 10^6/uL (4.18-5.33); RED CELL DISTRIBUTION WIDTH 16.7 % (11.5-15.2)
[2016-09-18 05:38] LABS: ANION GAP 9 mEq/L (8-16); CALCIUM 9.3 mg/dL (8.5-10.4); CARBON DIOXIDE 26 mEq/l (22-31); CHLORIDE 111 mEq/L (97-110); GLOMERULAR FILTRATION RATE 54; GLUCOSE 112 mg/dL (70-100); SODIUM 146 mEq/L (134-144)
[2016-09-18] MEDS: LEVOTHYROXINE 75 MCG TAB PO SCH (06:05)
[2016-09-18] MEDS: CITALOPRAM 20 MG TAB PO SCH (08:33)
[2016-09-18] MEDS: ATORVASTATIN CALCIUM 40 MG TAB PO SCH (08:33)
[2016-09-18] MEDS: MEMANTINE HCL 5 MG TAB PO SCH (08:33)
[2016-09-18] MEDS: metFORMIN SR 500 MG TAB PO SCH (08:33)
[2016-09-18] MEDS: INSULIN LISPRO 100 UNIT/ML SC SCH ×2 (08:39→13:14)
[2016-09-18] MEDS: ENOXAPARIN 100 MG/ML SYR SC SCH (08:41)
--- NOTE | 2016-09-18 08:57 | CPEKG ---
Heart Rate: 71 RR Interval: 845 P-R Interval: 224 QRSD Interval: 142 QT Interval: 436 QTC Interval: 474 QRS Addison: -49 T Wave Addison: -18 EKG Severity - ABNORMAL ECG - EKG Impression: ATRIAL-PACED RHYTHM EKG Impression: RBBB AND LAFB EKG Impression: PROBABLE LEFT VENTRICULAR HYPERTROPHY Preliminary Awaiting MD Review
[2016-09-18 09:15] LABS: INR 1.41 (0.83-1.16); PROTIME(PATIENT) 17.2 SEC (12.0-15.0)
[2016-09-18 11:53] VITALS: BP 130/73; PULSE 75; RESP 20; TEMP 98.5; O2SAT 95
--- NOTE | 2016-09-18 12:35 | PDIAF ---
- Diagnosis Code Status: Full Code - Medication Management Discharge Medications: Medications to Continue on Transfer Atorvastatin Calcium [Lipitor 40 mg (*)] 40 mg PO DAILY 05/23/16 [Last Taken 09/29] Citalopram [CeleXA 20 MG] 20 mg PO DAILY 05/23/16 [Last Taken 09/15/16] Glimepiride [Amaryl 1 MG (*)] 1 mg PO DAILY 05/23/16 [Last Taken 09/15/16] Metoprolol Succinate Xr [Toprol Xl 50 mg (*)] 50 mg PO DAILY18 05/23/16 [Last Taken 09/15/16] Warfarin Sodium [Coumadin 2.5MG (*)] 2.5 mg PO MOTUTHFRSA 05/23/16 [Last Taken 09/15/16] Levothyroxine [Synthroid 75 mcg (*)] 75 mcg PO DAILY06 09/12/16 [Last Taken 10/30] Memantine HCl [Namenda 10 mg] 10 mg PO BID 09/12/16 [Last Taken 09/15/16] Warfarin Sodium [Coumadin 5MG (*)] 5 mg PO SUWE 09/12/16 [Last Taken 09/13/16] Gabapentin 100 mg PO HS 09/16/16 [Last Taken 09/15/16] Metformin HCl [Metformin HCl ER] 500 mg PO 0900,1400 09/16/16 [Last Taken 14:00] Dabigatran Etexilate Mesyl [Pradaxa 150 MG (*)] 150 mg PO BID #0 cap 09/18/16 [ Last Taken Unknown] Discharge Medications: Refer to the Discharge Home Medication list for PRN reason. - Orders Services needed: Registered Nurse, Master Vineyard Supervisor, Physical Therapy Diet Recommendation: cardiac -low fat low salt - Follow Up Care Current Providers and Referrals: Patient,NotPresent [Unknown] - As per Instructions
--- NOTE | 2016-09-18 17:16 | GDS ---
DISCHARGE DIAGNOSES: 1. Atrial fibrillation with rapid ventricular rate. 2. Hypotension, secondary to overmedication. 3. Social issues. 4. Sick sinus syndrome, status post pacemaker August 2015. 5. Coronary artery disease. 6. Controlled diabetes. 7. Cerebrovascular accident. 8. Slurred speech. 9. Hyperlipidemia. 10. Depression. HPI: Patient is a 76-year-old female with multiple comorbidities, including chronic atrial fibrilla tion, diabetes, hypertension, right bundle branch block, and CVA, presenting after a fall. Was disc harged 09/13/2016 after undergoing a pacemaker placement for sick sinus syndrome on September 12. Since being at home, she has been very fatigued, sleepy most of the day, and also taking minimal p.o . intake. Day of admission, she was trying to pour a cup of coffee, felt dizzy, and fell backwards on her buttocks. She denies hitting her head. She denied chest pain, shortness of breath, or palpi tations. In the emergency room, she said it was difficult to get words out and felt a little confus ed. She denied fevers, chills, sweats. No upper respiratory infection symptoms. HOSPITAL COURSE BY PROBLEM: 1. Fall, multifactorial with atrial fibrillation with RVR, but more likely hypotension due to multi ple blood pressure meds, some recently started. Patient has had a negative CT head, no evidence of trauma. 2. Hypotension: Patient was recently started on Norvasc at last hospitalization. I held the losar gay, Norvasc, and Lasix. These will all be discontinued. She is to continue her beta-adelaida and f ollow up with Dr. Malik this week. 3. Atrial fibrillation with RVR: Heart rate 100-130s during hospitalization. I continued her beta -adelaida and was treated with IV amiodarone. Did not convert. Her [id number] is 8. This warrants bridging with Coumadin and Lovenox. Will follow up with Dr. Malik this week for an INR check. 4. Sick sinus syndrome: Patient had a pacer placed 09/12. Healing well. Will have the pacer che ked with Dr. Malik. 5. CAD, multivessel disease: Continue beta-adelaida, statin. 6. Controlled diabetes: Continue home medications. 7. CVA: Statin and Coumadin. 8. Slurred speech: Patient reported having slurred speech and mild confusion when in the emergency room here. A CT head was negative for new stroke. This has since resolved. 9. Hyperlipidemia: Statin. 10. Depression: Celexa. 11. Social issues: Patient lives with her daughter. Unfortunately, they are about to be evicted a s daughter lost job due to being caregiver. Social Work will help with Medicaid application however , patient does not qualify because has too much income. She does have [facility] to cover pres criptions. Patient was provided Social Work home nurse, as well as therapy at discharge. MEDICATIONS: New medications: Lovenox b.i.d. FOLLOWUP: 1. Dr. Malik. 2. Followup INR. I spent greater than 60 minutes coordinating followup with Dr. Malik and counseling patient on med ications. /[id number]/MODL
== END 2016-09-18 14:57 | disposition home health service (06) | DRG 310 ==
LOC: EDUNIT# → UNDOADMIN 10:13 → F2W 11:49
PROVIDERS: ADMIT Internal Medicine; ATTEND Internal Medicine
DX: I48.2 Chronic atrial fibrillation (principal); I95.9 Hypotension, unspecified; I25.10 Atherosclerotic heart disease of native coronary artery without angina pectoris; E11.40 Type 2 diabetes mellitus with diabetic neuropathy, unspecified; E78.5 Hyperlipidemia, unspecified; G47.33 Obstructive sleep apnea (adult) (pediatric); E03.9 Hypothyroidism, unspecified; I49.5 Sick sinus syndrome; Z95.0 Presence of cardiac pacemaker; Z79.01 Long term (current) use of anticoagulants; I25.2 Old myocardial infarction
CPT/HCPCS: 96365; 97165-GO; A4649; C1785; C1898; G8987-GO-CI; G8988-GO-CI; J0282; J0690; J1644; J1650; J1815; J2250; J2405; J3010; Q9967